=== PATIENT | female | born 2000 | race African-American/Black ===

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

== ENCOUNTER 2022-01-15 19:40 | Emergency (ER) | payer OTHER, SELFPAY ==
--- NOTE | ~2022-01-15 | XR_ITS ---
EXAMINATION: XR chest 1V portable DATE: 01/15/2022 20:16 INDICATION: Cough TECHNIQUE: frontal view of the chest was obtained. COMPARISON: None FINDINGS: The lungs are clear with no focal airspace opacities, pulmonary edema, pleural effusion or pneumothor ax. The cardiomediastinal silhouette is normal. Visualized bones and soft tissues are unremarkable. IMPRESSION: 1. No acute cardiopulmonary disease. Reviewed, dictated and finalized at location A.
[2022-01-15 19:43] VITALS: BP 134/74; PULSE 92; RESP 18; TEMP 37.7; O2SAT 100
--- NOTE | 2022-01-15 20:06 | ECG_ITS ---
Measurements Intervals [place] Rate: 69 P: 10 ND: 170 QRS: 58 QRSD: 73 T: 30 QT: 369 QTc: 398 Interpretive Statements SINUS RHYTHM NORMAL ECG NO PREVIOUS ECG AVAILABLE FOR COMPARISON Electronically Signed On 01-16-2022 14:13:46 CDT by Thomas Rivas M.D.
--- NOTE | 2022-01-15 20:10 | ED.GENADULT ---
HPI - General Adult General Chief complaint: Unspecified Stated complaint: im feeling really dizzy Time Seen by Provider: 01/15/22 20:00 History of Present Illness HPI narrative: Patient is a 21-year-old female that presents the emergency department with chief complaint of dizziness. Patient reports that over the last several days she has had a bit of a cough some discomfort in her left upper quadrant and left lower quadrant reports she has had multiple bouts of loose stool and reports that she has had cramping in her back. Patient reports that she is currently on her period but is on oral contraceptives. Patient states that she has had a cough this been nonproductive reports that whenever she stands up she gets lightheaded the patient does report she has been able to tolerate p.o. intake the patient reports that she has not had COVID and has not previously been vaccinated for COVID-19. Related Data Allergies Allergy/AdvReac Type Severity Reaction Status Date / Time diphenhydramine Allergy Hives Verified 01/15/22 20:06 [From Benadryl] Review of Systems Review of Systems: A 10 system review of systems was completed on the patient and is negative except for what is stated in the HPI. Nursing and ancillary documentation was reviewed. PMFSH Past Medical History Medical History Foot drop Family History Family History Father Diabetes mellitus Mother Hypertension Social History Social History Smoking status: Never smoker Alcohol intake: never Substance use: never Gender identity (if verbalized by the patient): Female Spiritual care concerns: No Exam Narrative: GENERAL: Well-appearing, well-nourished, and in no acute distress. HEAD: Normocephalic, atraumatic. EYES: PERRLA and EOMI. ENT: Nares clear, no rhinorrhea or epistaxis. Mucous membranes moist. NECK: Supple. CHEST: Clear to auscultation. No respiratory distress. HEART: Regular rate and rhythm. No murmur heard. Normal peripheral pulses. ABDOMEN: Soft, mild tenderness to palpation in the left upper and left lower quadrant, nondistended, normal active bowel sounds. EXTREMITIES: Normal range of motion. No edema. SKIN: Warm, dry, no rash. NEURO: No focal deficits. Alert and oriented x3. PSYCH: Normal mood and affect. Course Vital Signs Vital signs: Vital Signs Temperature 37.7 C H 01/15/22 19:43 Pulse Rate 92 01/15/22 19:43 Respiratory Rate 18 01/15/22 19:43 Blood Pressure 134/74 01/15/22 19:43 Pulse Oximetry 100 01/15/22 19:43 Temperature 37.7 C H 01/15/22 19:43 Pulse Rate 78 01/15/22 21:05 Respiratory Rate 18 01/15/22 21:05 Blood Pressure 128/80 01/15/22 21:05 Pulse Oximetry 99 01/15/22 21:05 Medical Decision Making Vital Signs Vital Signs: Vital Signs Temperature 37.7 C H 01/15/22 19:43 Pulse Rate 92 01/15/22 19:43 Respiratory Rate 18 01/15/22 19:43 Blood Pressure 134/74 01/15/22 19:43 Pulse Oximetry 100 01/15/22 19:43 Temperature 37.7 C H 01/15/22 19:43 Pulse Rate 78 01/15/22 21:05 Respiratory Rate 18 01/15/22 21:05 Blood Pressure 128/80 01/15/22 21:05 Pulse Oximetry 99 01/15/22 21:05 Lab Data Result diagrams: 01/15/22 20:18 01/15/22 20:18 Labs: Lab Results 01/15/22 01/15/22 01/15/22 Range/Units 20:18 20:18 20:18 WBC 4.6 (4.5-10.0) K/mm3 RBC 4.74 (4.2-5.4) M/mm3 Hgb 12.4 (12.0-15.0) g/dL Hct 38.9 (37.0-47.0) % MCV 82.1 (80-100) fl MCH 26.2 (26-34) pg MCHC 31.9 L (32-36) g/dl RDW 14.1 (11.5-14.5) % Plt Count 207 (150-375) k/mm3 MPV 11.3 H (7.4-10.4) fl Immature Gran % (Auto) 0.2 (0-0.5) % Neut % (Auto) 60.7 (45.5-73.1) % Lymph % (Auto) 26.2 (18.3-44.2) % Craig % (Auto)
[2022-01-15] MEDS: METOCLOPRAMIDE HCL INJ 10 MG/2 ML VIAL IV PUSH (20:22)
[2022-01-15] MEDS: SODIUM CHLORIDE 0.9% IV 1,000 ML 999 ML IV CONT ×2 (20:22→22:02)
[2022-01-15 20:23] LABS: Basophils Percent Auto 0.4 % (0.2-1.2); Eosinophils Absolute Auto 0.1 K/mm3 (0-0.3); Hematocrit 38.9 % (37.0-47.0); Hemoglobin 12.4 g/dL (12.0-15.0); Immature Granulocyte Absolute 0.01 K/mm3 (0.00-0.031); Immature Granulocyte Percent A 0.2 % (0-0.5); Lymphocytes Percent Auto 26.2 % (18.3-44.2); Mean Corpuscular HGB Conc 31.9 g/dl (32-36); Mean Corpuscular Hemoglobin 26.2 pg (26-34); Mean Corpuscular Volume 82.1 fl (80-100); Mean Platelet Volume 11.3 fl (7.4-10.4); Monocytes Absolute Auto 0.5 K/mm3 (0.1-0.6); Monocytes Percent Auto 10.5 % (2.6-8.5); Neutrophils Absolute Auto 2.8 K/mm3 (1.3-6.7); Neutrophils Percent Auto 60.7 % (45.5-73.1); Platelet Count Result 207 k/mm3 (150-375); Red Blood Count 4.74 M/mm3 (4.2-5.4); Red Cell Distribution Width 14.1 % (11.5-14.5); White Blood Count 4.6 K/mm3 (4.5-10.0)
[2022-01-15 20:37] LABS: D Dimer 0.44 ug/mL (<0.48)
[2022-01-15 20:42] LABS: Alanine Aminotransferase 11 U/L (4-35); Albumin Level 4.1 g/dL (3.7-5.6); Alkaline Phosphatase 56 U/L (45-116); Anion Gap 8 mmol/L (8-16); Aspartate Amino Transferase 20 U/L (14-36); Bilirubin,Total 0.3 mg/dL (0.2-1.3); Blood Urea Nitrogen 11 mg/dL (8-21); Calcium 8.4 mg/dL (8.9-10.7); Carbon Dioxide 25 mmol/L (22-30); Chloride 107 mmol/L (98-107); Estimated CRCL calculation 76 ml/min; Estimated Glomerular Filt Rate > 60; Glucose 64 mg/dL (65-110); Lipase 69 U/L (23-300); Magnesium 1.7 mg/dL (1.6-2.3); Potassium 3.9 mmol/L (3.4-5.0); Sodium 140 mmol/L (134-143)
[2022-01-15 20:48] VITALS: BP 110/64; PULSE 74
[2022-01-15 20:49] VITALS: BP 115/65; PULSE 82
[2022-01-15 20:52] VITALS: BP 111/68; PULSE 81
[2022-01-15 20:52] LABS: Troponin I < 0.012 ng/mL (0.000-0.034)
[2022-01-15 21:03] LABS: SARS-CoV-2 RNA PCR Negative
[2022-01-15 21:05] VITALS: BP 128/80; PULSE 78; RESP 18; O2SAT 99
--- NOTE | 2022-01-15 21:32 | PC.NURSE ---
pt updated on need for urine and progress in ER.
[2022-01-15 22:21] LABS: Add Urine Microscopic? YES; Appearance Urine Cloudy (Clear); Bilirubin Urine Negative (Negative); Blood Urine 3+ (Negative); Color Urine Yellow (Yellow); Glucose Urine UA Negative (Negative); Ketones Urine Negative (Negative); Leukocyte Esterase Ur Negative LEU/UL (Negative); Mucus Urine Rare /lpf; Nitrate Urine Negative (Negative); Protein Urine Negative (Negative); Specific Grav Ur 1.023 (1.001-1.035); Squamous Epithelial Cell Urine Few /hpf (Few); WBC Urine 0-3 /hpf
--- NOTE | 2022-01-15 22:55 | PC.NURSE ---
report given to rebecca rn, care transferred
[2022-01-15 23:31] VITALS: BP 117/73; PULSE 68; RESP 16; O2SAT 99
== END 2022-01-15 23:32 | disposition home or self-care (01) ==
PROVIDERS: Emergency Provider Emergency Medicine; PCP Physician Assistant
DX: K52.9 Noninfective gastroenteritis and colitis, unspecified (principal); Z20.822 Contact with and (suspected) exposure to COVID-19
CPT/HCPCS: 36415; 71045; 80053; 81001; 81025; 83690; 83735; 84484; 85025; 85380; 93005; 96361; 96374; 99284; C9803; J2765; J7030; U0003; U0005

== ENCOUNTER 2023-03-06 20:45 | Emergency (ER) | payer OTHER, SELFPAY ==
--- NOTE | ~2023-03-06 | XR_ITS ---
EXAM: XR ankle LT min 3V DATE: 03/06/2023 21:04 HISTORY: fall, injury, SWELLING TO LATERAL ANKLE . COMPARISON: None available. FINDINGS: Normal mineralization. No fracture or dislocation. No lytic or blastic lesion. Joint space s are maintained. No erosion or periosteal change. Soft tissues within normal limits. IMPRESSION: No acute osseous finding in the left ankle. Reviewed, dictated and finalized at location K.
[2023-03-06 21:06] VITALS: BP 116/94; PULSE 72; RESP 16; TEMP 36.7; O2SAT 100
--- NOTE | 2023-03-06 22:44 | ED.GENADULT ---
HPI - General Adult General Chief complaint: Extremity Injury, Lower <ADAM Marques Last Filed: 03/07/23 03:21> Stated complaint: left ankle injury <ADAM Marques Last Filed: 03/07/23 03:21> Time Seen by Provider: 03/06/23 22:02 <German Mauro PA-C - Last Filed: 03/07/23 03:21> Source: patient <ADAM Marques Last Filed: 03/07/23 03:21> Mode of arrival: ambulatory <ADAM Marques Last Filed: 03/07/23 03:21> Limitations: no limitations <ADAM Marques Last Filed: 03/07/23 03:21> History of Present Illness HPI narrative: This is a 22-year-old female who presents to the ED with chief complaint of a left ankle injury that occurred today just prior to arrival. Patient was mowing the lawn and going down the hill with a lawnmower when she her ankle rolled. She had an immediate pain and felt a pop. She has had trouble with weightbearing. Reports swelling and tenderness to the lateral ankle. She states that she has a dropfoot and feels that this caused her to roll her ankle. Denies any new numbness or weakness. <German Mauro PA-C - Last Filed: 03/07/23 03:21> Related Data Allergies/adverse reactions: Allergies Allergy/AdvReac Type Severity Reaction Status Date / Time diphenhydramine Allergy Hives Verified 01/15/22 20:06 [From Benadryl] <ADAM Marques Last Filed: 03/07/23 03:21> Review of Systems Review of Systems: CONSTITUTIONAL: Denies fever, chills, or sweats. SKIN: Denies rash or itching. MUSCULOSKELETAL: See HPI NEUROLOGIC: Denies headache, numbness, dizziness, or weakness. PSYCHIATRIC: Denies anxiety or depression. <ADAM Marques Last Filed: 03/07/23 03:21> [facility] Past Medical History Medical History: Medical History Foot drop <German Mauro PA-C - Last Filed: 03/07/23 03:21> Family History Family History: Family History Father Diabetes mellitus Mother Hypertension <German Mauro PA-C - Last Filed: 03/07/23 03:21> Social History Social History: Social History Smoking status: Never smoker Alcohol intake: never Substance use: never Living arrangements: with family Gender identity (if verbalized by the patient): Female Spiritual care concerns: No <German Mauro PA-C - Last Filed: 03/07/23 03:21> Exam Narrative: GENERAL: Well-appearing, well-nourished, and in no acute distress. HEAD: Normocephalic, atraumatic. EYES: PERRLA and EOMI. ENT: Nares clear, no rhinorrhea or epistaxis. Mucous membranes moist. Oropharynx without tonsillar hypertrophy exudate or other lesions. NECK: Supple. No adenopathy or masses. CHEST: No respiratory distress. Clear to auscultation. No wheezes rales or rhonchi HEART: Regular rate and rhythm. No murmur heard. Normal peripheral pulses. ABDOMEN: Soft, nontender, nondistended, normal active bowel sounds. EXTREMITIES: Left ankle: Moderate effusion and tenderness to the lateral ankle. No bruising. Neurovascular intact distally. Belle test negative. Right ankle: Benign MSK exam is otherwise benign. Ambulatory. Normal range of motion. No edema. SKIN: Warm, dry, no rash. NEURO: Alert and oriented x3. No focal deficits. PSYCH: Normal mood and affect. <German Mauro PA-C - Last Filed: 03/07/23 03:21> Course [employer]/PA Physician Supervision This is a was performed by both a physician and an APC. I performed all aspects of the MDM as documented w/ the following additions: 22-year-old presenting ankle pain. X-rays were negative. Patient was discharged with pain management appropriate follow-up. All questions answered. Patient in agreement w/ disposition. <Haseeb Mancera MD - Last Filed: 03/10/23 08:00> Vital Signs Vital signs:
== END 2023-03-06 22:58 | disposition home or self-care (01) ==
PROVIDERS: Emergency Provider Physician Assistant; PCP Physician Assistant
DX: S93.402A Sprain of unspecified ligament of left ankle, initial encounter (principal); M21.372 Foot drop, left foot; X50.9XXA Other and unspecified overexertion or strenuous movements or postures, initial encounter; Y93.H2 Activity, gardening and landscaping
CPT/HCPCS: 73610; 99283

== ENCOUNTER 2023-08-21 11:21 | Inpatient (IN) | payer OTHER, SELFPAY ==
[2023-08-21] VITALS (145 sets, daily range): BP systolic 76–164; BP diastolic 48–122; PULSE 69–268; RESP 16–18; TEMP 35.9–36.8; O2SAT 84–100; BMI 34.0
[2023-08-21] MEDS: LACTATED RINGERS 1,000 ML 125 ML IV CONT ×2 (12:30→13:37)
[2023-08-21 13:29] LABS: Basophils Percent Auto 0.2 % (0.2-1.2); Eosinophils Percent Auto 0.2 % (0-4.4); Hematocrit 34.3 % (37.0-47.0); Hemoglobin 10.8 g/dL (12.0-15.0); Immature Granulocyte Absolute 0.05 K/mm3 (0.00-0.031); Immature Granulocyte Percent A 0.4 % (0-0.5); Lymphocytes Absolute Auto 1.38 K/mm3 (0.9-3.2); Lymphocytes Percent Auto 10.7 % (18.3-44.2); Mean Corpuscular HGB Conc 31.5 g/dl (32-36); Mean Corpuscular Hemoglobin 24.5 pg (26-34); Mean Corpuscular Volume 77.8 fl (80-100); Mean Platelet Volume 12.9 fl (7.4-10.4); Monocytes Absolute Auto 0.8 K/mm3 (0.1-0.6); Monocytes Percent Auto 6.5 % (2.6-8.5); Neutrophils Absolute Auto 10.5 K/mm3 (1.3-6.7); Platelet Count Result 217 k/mm3 (150-375); Red Blood Count 4.41 M/mm3 (4.2-5.4); Red Cell Distribution Width 15.1 % (11.5-14.5); White Blood Count 12.9 K/mm3 (4.5-10.0)
[2023-08-21] MEDS: AMPICILLIN 2 GM/NS 100 ML 2 GM/100 ML BAG IVPB (13:38)
--- NOTE | 2023-08-21 14:49 | LDADM ---
This patient, Ermias Ruiz, was admitted to Labor/Delivery/Recovery 105 on 08/21/23 at 11:21. Plans for labor, pain management and were discussed with patient. Patient/family oriented to hospital policies and general routines including ID bracelet, bed and alarms, visiting hours, pain management, procedures, bathroom and other care routines, personal items, smoking policy, room service/diet and guest tray routines, security routines, and visiting hours. Patient/Family are encouraged to report perceived risks to care and to ask questions if they do not understand what they are told or what they should do. See OBIX for further documentation.
--- NOTE | 2023-08-21 16:33 | WPDOBADMIT ---
Obstetrics - Admit Note Admission Note: record reviewed. No pertinent additions to the history and/or any subsequent changes in the physical findings that are not consistent with the expected course of the were found. admit pt in labor., SVe /-2 AROM thick meconium fluid, anticipate vaginal delivery Additions to the history and/or subsequent changes in the physical findings follow. None.
--- NOTE | 2023-08-21 17:54 | PM.IMHP ---
H&P: HPI History of Present Illness Date/Time: 08/21/23 17:54 Chief Complaint: pt arrived in labor with contractions every 3-4 minutes. Minimal variability, no declerations, accelerations few, category 2 tracing. AROM, noted thick meconium and IUPC placed. recurrent late decelerations after no cervical dilation change. discussed risk of having to add pitocin to make cervical change for vaginal delivery. decision was made with pt and her family for a primary section. questions answered and Dr. traore notified. complicated by sickle cell trait and anemia Review of Systems Review of Systems: All systems reviewed & are unremarkable except as noted in HPI and below PMFSH Past Medical History Medical History Foot drop Family History Family History Father Diabetes mellitus Mother Hypertension Social History Social History Smoking status: Never smoker Alcohol intake: never Substance use: never Lack of Transportation: No Lack of Food: Never True Current Housing: I Have Housing Concerned About Future Housing: No Difficulty Paying Gas/Electric Bills: No Difficulty Paying for Meds: No Currently Unemployed: No Education: Don't Know Difficulty w/ Childcare or Family Care: No Living arrangements: with family Gender identity (if verbalized by the patient): Female Spiritual care concerns: No Meds Home Medications and Allergies Allergies Allergy/AdvReac Type Severity Reaction Status Date / Time diphenhydramine Allergy Hives Verified 08/04/23 12:29 [From Benadryl] Vital Signs Vital Signs - 24 hr 08/21/23 13:16 08/21/23 13:31 08/21/23 13:41 Temperature 36.6 C Pulse Rate 82 85 Blood Pressure 122/64 129/81 Pulse Oximetry 100 Oxygen Delivery 08/21/23 13:46 08/21/23 13:51 08/21/23 13:56 Temperature Pulse Rate 75 Blood Pressure 116/62 Pulse Oximetry 100 100 99 Oxygen Delivery 08/21/23 13:59 08/21/23 14:01 08/21/23 14:06 Temperature Pulse Rate 78 76 Blood Pressure 113/76 104/48 L Pulse Oximetry 100 99 Oxygen Delivery 08/21/23 14:11 08/21/23 14:12 08/21/23 14:14 Temperature Pulse Rate 93 88 Blood Pressure 113/74 114/72 Pulse Oximetry 99 Oxygen Delivery 08/21/23 14:15 08/21/23 14:16 08/21/23 14:17 Temperature Pulse Rate 83 87 Blood Pressure 115/76 136/82 Pulse Oximetry 100 Oxygen Delivery 08/21/23 14:19 08/21/23 14:21 08/21/23 14:23 Temperature Pulse Rate 85 85 89 Blood Pressure 125/59 L 123/60 118/55 L Pulse Oximetry 99 Oxygen Delivery 08/21/23 14:25 08/21/23 14:27 08/21/23 14:29 Temperature Pulse Rate 92 79 93 Blood Pressure 115/55 L 122/61 117/59 L Pulse Oximetry 96 Oxygen Delivery 08/21/23 14:31 08/21/23 14:32 08/21/23 14:33 Temperature Pulse Rate 83 94 Blood Pressure 125/69 131/55 L Pulse Oximetry 99 Oxygen Delivery 08/21/23 14:35 08/21/23 14:37 08/21/23 14:39 Temperature Pulse Rate 77 89 85 Blood Pressure 127/68 132/67 128/59 L Pulse Oximetry 100 Oxygen Delivery 08/21/23 14:41 08/21/23 14:42 08/21/23 14:46 Temperature Pulse Rate 83 79 Blood Pressure 129/55 L 98/59 L Pulse Oximetry 100 Oxygen Delivery 08/21/23 14:47 08/21/23 14:52 08/21/23 14:57 Temperature Pulse Rate Blood Pressure Pulse Oximetry 97 97 99 Oxygen Delivery 08/21/23 15:01 08/21/23 15:02 08/21/23 15:07 Temperature Pulse Rate 74 Blood Pressure 106/66 Pulse Oximetry 96 96 Oxygen Delivery 08/21/23 15:12 08/21/23 15:16 08/21/23 15:17 Temperature Pulse Rate 75 Blood Pressure 105/65 Pulse Oximetry 96 96 Oxygen Delivery 08/21/23 15:22 08/21/23 15:27 08/21/23 15:32 Temperature Pulse Rate 79 Blood
[2023-08-21] MEDS: TERBUTALINE SULFATE 1 MG/ML VIAL 0.25 MG SUB-Q (17:57)
[2023-08-21] MEDS: AZITHROMYCIN 500 MG/NS 250 ML 500 MG/250 ML BAG 250 MG IVPB (18:12)
[2023-08-21] MEDS: PHENYLEPHRINE 1,000 MCG/10 ML SYRINGE 100 MCG IV PUSH (18:39)
[2023-08-21] MEDS: ceFAZolin 2 GM/D5W 50 ML 2 GM/50 ML BAG IVPB (19:10)
--- NOTE | 2023-08-21 19:21 | P.PNAN_ITS ---
Anes - Eval Final PreProcedure Day of Procedure 08/21/23 19:21 Patient weight: obese Anesthetic plan: proceed Anesthesia type and monitoring: regional epidural and standard monitoring Results Review: All pre-operative results and documents have been reviewed as part of the pre- operative evaluation. Informed Consent: The patient's anesthetic plan and its attendant risks and benefits were discussed with the patient/family/POA. Questions were solicited and answers provided to the satisfaction of the patient/family/POA.
--- NOTE | 2023-08-21 19:51 | P.OP_ITS ---
Procedure Note - Detailed Date of Procedure 08/21/23 Pre-op Diagnosis Assuring heart tones Post-op Diagnosis Same Procedure Performed Low-transverse section Surgeon Marichuy Jones MD Anesthesia Spinal Indications nonreassuring heart tones, remote from vaginal Findings Normal gestational maternal anatomy, average size , normal Apgars. thick meconium Description of Procedure The patient was taken the operating room. She was prepped and draped in dorsal supine position with a leftward tilt. This was done after spinal anesthetic was applied. A low-transverse skin incision was made and carried down till of the fascia with the knife. The fascial incision was made with the knife. The fascial incision was extended laterally with Garrison scissors. The fascia was tented upward superiorly and inferiorly the rectus muscles were dissected off bluntly. The rectus muscles were the midline. The preperitoneal fat and peritoneum were dissected open bluntly at the superior aspect of the rectus muscles. The peritoneal incision was extended superior and inferior with good position of bladder. The uterine incision was made with a scalpel down to the level of the amniotic cavity. The amniotic cavity was entered bluntly. The infant was delivered. The cord was clamped and cut and the infant was handed off to waiting pediatric staff. Cord bloods were obtai leanna. The placenta was removed manually. The uterus was exteriorized. The uterus was cleared of all clots, debris and membranes. The uterus was closed in 0 Vicryl running lock fashion. An imbricating over a was placed along the incision line as well. The uterus was returned to the abdomen. The gutters were cleared of all clots and debris. The fascia was closed with 0 Vicryl running fashion. The subcutaneous tissue was irrigated pinpoint bleeders were cauterized. The skin was closed with subcuticular absorbable magnus. The skin incision line was covered with glue. The patient tolerated the procedure well. She has taken recovery room in stable condition. Sponge lap and needle counts were correct x2. Pathology Yes Complications No immediate complications Condition Stable Disposition PACU
[2023-08-21] MEDS: OXYTOCIN 30 UNITS/NS 500 ML 30 UNITS/500 ML BAG 125 UNITS IV CONT (20:30)
--- NOTE | 2023-08-21 22:58 | OBPPTRN ---
Patient transferred to post room #285 via stretcher. Support person present. Oriented to unit, room, information board, rooming in, admission packet and security measures. Patient verbalizes understanding.
[2023-08-22] MEDS: DEXTROSE 5%/0.45% SOD CHL 1,000 ML 125 ML IV CONT (00:18)
[2023-08-22 04:00] VITALS: BP 127/72; PULSE 89; RESP 18; TEMP 37; O2SAT 97
[2023-08-22] MEDS: KETOROLAC 30 MG/ML VIAL (*BKC) IV PUSH (04:06)
[2023-08-22 05:05] LABS: Basophils Percent Auto 0.1 % (0.2-1.2); Eosinophils Percent Auto 0.1 % (0-4.4); Hematocrit 29.9 % (37.0-47.0); Hemoglobin 9.5 g/dL (12.0-15.0); Immature Granulocyte Absolute 0.04 K/mm3 (0.00-0.031); Immature Granulocyte Percent A 0.3 % (0-0.5); Lymphocytes Percent Auto 9.8 % (18.3-44.2); Mean Corpuscular HGB Conc 31.8 g/dl (32-36); Mean Corpuscular Hemoglobin 24.5 pg (26-34); Mean Corpuscular Volume 77.3 fl (80-100); Mean Platelet Volume 12.7 fl (7.4-10.4); Monocytes Absolute Auto 0.9 K/mm3 (0.1-0.6); Monocytes Percent Auto 6.2 % (2.6-8.5); Neutrophils Percent Auto 83.5 % (45.5-73.1); Platelet Count Result 182 k/mm3 (150-375); Red Blood Count 3.87 M/mm3 (4.2-5.4); Red Cell Distribution Width 15.2 % (11.5-14.5); White Blood Count 14.3 K/mm3 (4.5-10.0)
[2023-08-22] MEDS: POLYSACCHARIDE IRON COMPLEX 150 MG CAPSULE PO ×2 (07:51→15:40)
[2023-08-22] MEDS: DOCUSATE SODIUM 100 MG CAPSULE PO ×2 (07:51→15:40)
[2023-08-22] MEDS: HYDROcodone/acetaminophen (*CRX) 5-325 MG TABLET 1 TAB PO ×3 (07:51→19:26)
[2023-08-22 07:55] VITALS: BP 114/71; PULSE 83; RESP 16; TEMP 36.9; O2SAT 99
--- NOTE | 2023-08-22 07:57 | P.PNOB_ITS ---
OB - PN: Subj Subjective Date/time seen: 08/22/23 07:57 Interval history: pp day 1 primary section incisional pain baby doing well flatus not present OB - PN: Obj Data Labs 08/22/23 04:05 Labs: Laboratory Results - last 24 hr 08/21/23 08/22/23 13:24 04:05 WBC 12.9 H 14.3 H RBC 4.41 3.87 L Hgb 10.8 L 9.5 L Hct 34.3 L 29.9 L MCV 77.8 L 77.3 L MCH 24.5 L 24.5 L MCHC 31.5 L 31.8 L RDW 15.1 H 15.2 H Plt Count 217 182 MPV 12.9 H 12.7 H Immature Gran % (Auto) 0.4 0.3 Neut % (Auto) 82.0 H 83.5 H Lymph % (Auto) 10.7 L 9.8 L [place] % (Auto) 6.5 6.2 Eos % (Auto) 0.2 0.1 Baso % (Auto) 0.2 0.1 L Lymph # (Auto) 1.38 1.40 [place] # (Auto) 0.8 H 0.9 H Eos # (Auto) 0.0 0.0 Baso # (Auto) 0.0 0.0 Abs Immat Gran (auto) 0.05 H 0.04 H Absolute Neuts (auto) 10.5 H 12.0 H Absolute Nucleated RBC 0.0 0.0 Nucleated RBC % 0.0 0.0 Blood Type A Positive Antibody Screen Negative OB - PN A/P Plan day: 1 Plan: routine care Time Spent With Patient Time: Total time spent is greater than 50% in coordination of care (as documented) at patient's floor/unit and/or counseling patient: Review of Systems Review of Systems: All systems reviewed & are unremarkable except as noted in HPI and below Exam Const: General: cooperative and healthy appearing Chest: Chest palpation & inspection: normal inspection of the chest Resp: Effort & Inspection: normal respiratory effort Cardio: Rate: regular rate Rhythm: regular rhythm GI: Other: incision CDI Neuro: General: patient oriented x3
--- NOTE | 2023-08-22 10:00 | WPDANLDNPN2 ---
Anes-Prog Note L&D-Neuraxial Date/Time: 08/22/23 10:00 Patient feedback: Patient satisfied with post-operative pain management.
--- NOTE | 2023-08-22 10:00 | WPDANLDPN2 ---
Anes-Prog Note L&D Date/Time: 08/22/23 10:00 Neuro status: Neuro function grossly intact. Cardiovascular status: normal Respiratory status: normal Airway patency: baseline Mental status: baseline Post-Op hydration status: normal Vital Signs: Last Vital Signs Temp 36.9 C 08/22/23 07:55 Pulse 83 08/22/23 07:55 Resp 16 08/22/23 07:55 BP 114/71 08/22/23 07:55 Pulse Ox 99 08/22/23 07:55 O2 Del Method Room Air 08/22/23 04:00 Pain score (VAS): 0 I/O: Intake & Output 08/21/23 08/22/23 08/22/23 23:59 07:59 15:59 Intake Total 720 Output Total 1000 1350 Balance -1000 -630 Post-procedural complaints: none Patient feedback: Patient satisfied with anesthetic care.
[2023-08-22 12:29] VITALS: BP 120/64; PULSE 88; RESP 16; TEMP 36.6; O2SAT 99
[2023-08-22] MEDS: IBUPROFEN 600 MG TABLET PO ×2 (12:54→19:26)
[2023-08-22 13:18] LABS: Rapid Plasma Reagin Non-Reactive (NonReactive)
[2023-08-22] MEDS: HYDROcodone/acetaminophen (*CRX) 10-325 MG TABLET 1 TAB PO (15:40)
[2023-08-22] MEDS: SIMETHICONE 80 MG TAB.CHEW PO (19:22)
[2023-08-22 19:30] VITALS: BP 124/77; PULSE 64; RESP 18; TEMP 36.6; O2SAT 100
[2023-08-23] MEDS: SIMETHICONE 80 MG TAB.CHEW PO ×3 (03:10→16:04)
[2023-08-23] MEDS: HYDROcodone/acetaminophen (*CRX) 5-325 MG TABLET 1 TAB PO ×2 (03:10→16:04)
[2023-08-23] MEDS: IBUPROFEN 600 MG TABLET PO ×3 (03:10→16:06)
--- NOTE | 2023-08-23 07:42 | PM.OBPNVD ---
OB - PN: Subj Subjective Date/time seen: 08/23/23 07:42 Interval history: pp day 2 primary section sleeping when visited, no complaints OB - PN: Obj Data Labs 08/22/23 04:05 Labs: Laboratory Results - last 24 hr 08/21/23 13:24 RPR Non-reactive OB - PN A/P Assessment and Plan (1) S/P : Code(s): Z98.891 - History of uterine scar from previous surgery Status: Acute Plan meeting postop milestones POD2, increase ambulation Time Spent With Patient Time: Total time spent is greater than 50% in coordination of care (as documented) at patient's floor/unit and/or counseling patient: Exam Const: General: comfortable and no acute distress Orientation/consciousness: patient oriented x3 Resp: Effort & Inspection: normal respiratory effort
--- NOTE | 2023-08-23 08:00 | PC.NURSE ---
PT introductions made and plan of care discussed per post op c section, pain management, bottle feeding, daily care activities. PT and fob both recipients of such instructions and no barriers to learning identified at this time. PT received such instructions per one to one discussion, mom baby care guide and demonstrations this shift. PT verbalized understanding of such care.
[2023-08-23 08:30] VITALS: BP 124/76; PULSE 71; RESP 18; TEMP 37.3; O2SAT 99
[2023-08-23] MEDS: HYDROcodone/acetaminophen (*CRX) 10-325 MG TABLET 1 TAB PO (10:23)
[2023-08-23] MEDS: DOCUSATE SODIUM 100 MG CAPSULE PO ×2 (10:23→16:04)
[2023-08-23] MEDS: POLYSACCHARIDE IRON COMPLEX 150 MG CAPSULE PO ×2 (10:23→16:04)
[2023-08-23 10:25] VITALS: PULSE 71; RESP 18; O2SAT 99
[2023-08-23 19:00] VITALS: BP 125/70; PULSE 70; RESP 16; TEMP 36.4; O2SAT 100
[2023-08-24] MEDS: IBUPROFEN 600 MG TABLET PO ×2 (00:13→11:53)
[2023-08-24] MEDS: HYDROcodone/acetaminophen (*CRX) 10-325 MG TABLET 1 TAB PO ×2 (00:16→11:53)
[2023-08-24] MEDS: SIMETHICONE 80 MG TAB.CHEW PO ×2 (00:27→11:52)
--- NOTE | 2023-08-24 06:27 | PM.OBPNVD ---
OB - PN: Subj Subjective Date/time seen: 08/24/23 06:27 Interval history: pp day 3 primary section no complaints plan d/c home OB - PN: Obj Data Labs 08/22/23 04:05 OB - PN A/P Plan day: 3 Plan: routine care and discharge home Time Spent With Patient Time: Total time spent is greater than 50% in coordination of care (as documented) at patient's floor/unit and/or counseling patient: Review of Systems Review of Systems: All systems reviewed & are unremarkable except as noted in HPI and below Exam Const: General: cooperative Resp: Effort & Inspection: normal respiratory effort Cardio: Rate: regular rate Rhythm: regular rhythm GI: Other: incision CDI Skin: General skin exam: normal color
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
[2023-08-24 07:35] VITALS: BP 110/66; PULSE 77; RESP 18; TEMP 36.4; O2SAT 98
--- NOTE | 2023-08-24 08:00 | PC.NURSE ---
PT introductions made and plan of care discussed per post op c section, pain management, bottle feeding, daily care activities and pending discharge to home. PT and fob both recipients of such instructions and no barriers to learning identified at this time. PT received such instructions per one to one discussion, mom baby care guide and demonstrations this shift. PT verbalized understanding of such care.
[2023-08-24 10:00] VITALS: PULSE 77; RESP 18; O2SAT 98
[2023-08-24] MEDS: POLYSACCHARIDE IRON COMPLEX 150 MG CAPSULE PO (11:53)
[2023-08-24] MEDS: DOCUSATE SODIUM 100 MG CAPSULE PO (11:53)
--- NOTE | 2023-08-24 16:00 | PC.NURSE ---
Patient was given the opportunity to view the discharge video Mother & Baby Care, The First Two Weeks and to ask questions. Patient declined viewing the video but down loaded it to her phone and has been given the mother/baby guide for home reference. PT received discharge instructions per protocol and verbalized understanding
--- NOTE | 2023-08-24 16:45 | PC.NURSE ---
PT discharged to home ambulatory accompanied by fob and infant and walked to waiting car. Follow up appts confirmed
== END 2023-08-24 16:45 | disposition home or self-care (01) | DRG 540 ==
LOC: ANHLDR 13:38 → ANHOB2 23:06
PROVIDERS: Advanced Practice Midwife; Admitting Provider Obstetrics & Gynecology; PCP Physician Assistant; Visit Provider Obstetrics & Gynecology
PROC: 10D00Z1 Extraction of Products of Conception, Low, Open Approach (ICD-10-PCS; CPT 59514; principal; 2023-08-21 18:45)
DX: O32.4XX0 Maternal care for high head at term, not applicable or unspecified (principal); O69.81X0 Labor and delivery complicated by cord around neck, without compression, not applicable or unspecified; O77.0 Labor and delivery complicated by meconium in amniotic fluid; O99.824 Streptococcus B carrier state complicating childbirth; O76 Abnormality in fetal heart rate and rhythm complicating labor and delivery; Z3A.39 39 weeks gestation of pregnancy; Z37.0 Single live birth
CPT/HCPCS: 36415; 85025; 86592; 86850; 86900; 86901; 88307; A9270; J0290; J0456; J0690; J1885; J2274; J2371; J2405; J2590; J2795; J3105; J7120

== ENCOUNTER 2025-03-18 00:34 | Day surgery (SDC) | payer OTHER, SELFPAY ==
--- NOTE | 2025-03-11 08:21 | PC.NURSE ---
Report to the Outpatient Waiting Room, entrance under the green pavilion located off [facility], at time _0600_ on date _[id number]_. Planned Procedure Time: _0730_. Time changes happen often and if your time is changed the preop area will call you the afternoon before. - You and your visitor will be asked to self-screen and do not enter if you have any COVID symptoms. Please call surgeon if you need to reschedule. - A mask is optional within the hospital at this time. Patients may have clear liquids (water, carbonated beverages, clear teas, apple juice) until 3 hours prior to surgery with a maximum of 20 ounces. - No food from midnight until time of surgery and no smoking, or chewing tobacco (or any form of nicotine). No chewing gum, candy or mints. Take only the following medications with a SIP of water on the morning of surgery: __None___ DO NOT STOP ANY OF YOUR OTHER PRESCRIPTION MEDICATIONS PRIOR TO SURGERY EXCEPT THE FOLLOWING Hold all vitamins and supplements for 3 days per anesthesiologist. Medications to discontinue per physician Date to take last dose Please no make-up, nail malawian, hairspray, perfume, deodorant, or body powder the day of surgery. No jewelry (including any body piercings) or valuables the day of surgery, leave them at home. Please take a shower or bath the night before, or the morning of, surgery with an antibacterial soap. Wear comfortable, loose fitting clothing. - Jewelry must be removed prior to entering the operating room. Rings and piercings that are not removed may be cut off. - The hospital will not accept responsibility for valuables. - Please leave all valuables, including medications, at home the day of surgery. If you are going home after surgery, a licensed meals on wheels driver must drive you home. - NO public transportation without another adult if you receive anesthesia. - We recommend that an adult stay with you for 24 hours following discharge. - We also recommend that you do not drive, make important decision, drink alcoholic beverages, or take any drugs that were not prescribed by your health care provider for at least 24 hours after your discharge time. Follow any additional instructions given to you from your surgeon. Telephone instructions given to __Derea__and asked if any additional questions and then verbalized understanding. Patient advised to call surgeon office or pre surgery nurse liaison [phone] if any additional questions.
[2025-03-18] VITALS (11 sets, daily range): BP systolic 111–127; BP diastolic 59–80; PULSE 61–74; RESP 14–20; TEMP 36.5–36.6; O2SAT 93–100
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
--- OUTSIDE RECORDS SUMMARY | 2025-03-18 00:36 | XMS_ITS | Data Portability ---
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 discharge, Denies unusual bruising and Denies jaundice Neurologic: Denies Neuro-related abnormal movements, Denies Abnormal speech present, Denies abnormal gait, Denies behavioral changes, Denies confusion, Denies vertigo, Denies dizziness, Denies syncope, Denies loss of vision, Denies memory loss, Denies convulsions and Denies weakness Psychiatric: Psychiatric: Denies abnormal sleep pattern, Denies behavioral changes, Denies change in libido, Denies confusion, Denies depression, Denies anhedonia and Denies memory loss Endocrine: Endocrine: Reports no additional endocrine complaints, Denies change in libido and Denies fatigue Hematologic/Lymphatic: Hematologic/Lymphatic: Reports no additional hematologic/lymphatic complaints Allergic/Immunologic: Allergic/Immunologic: Reports no additional allergic/immunologic complaints and Denies wheezing FOR[facility], [facility] Past Medical History Medical History (Updated 03/18/25 @ 06:38 by Barry Jimenez MD) Overweight Foot drop Family History Family History Father Diabetes mellitus Mother Hypertension Social History Social History Smoking status: Never smoker Alcohol intake: never Substance use: never Lack of Transportation: No Lack of Food: Never True Current Housing: I Have Housing Concerned About Future Housing: No Difficulty Paying Gas/Electric Bills: No Difficulty Paying for Meds: No Currently Unemployed: No Education: Don't Know Difficulty w/ Childcare or Family Care: No Living arrangements: with family Gender identity (if verbalized by the patient): Female Spiritual care concerns: No Meds Home Medications and Allergies Home Medications Medication Instructions Recorded Confirmed Type No Home Medications 03/11/25 03/11/25 History Allergies Allergy/AdvReac Type Severity Reaction Status Date / Time diphenhydramine (From Allergy Hives Verified 03/18/25 06:03 Benadryl) Vital Signs Vital Signs - 24 hr 03/18/25 06:03 Temperature 97.7 F Pulse Rate 71 Respiratory Rate 20 Blood Pressure 125/69 Pulse Oximetry 99 Oxygen Delivery Room Air Exam Const: General: cooperative, healthy appearing, comfortable and no acute distress Orientation/consciousness: oriented to person, oriented to place and oriented to time HENMT: Head: normal to inspection Ears: external ears normal Face/Nose/Sinus: Normal external nose present and normal facial exam Face and sinus: normal facial exam Eyes: General: appearance normal, both eyes and all related structures Neck: Neck: normal visual inspection, trachea midline and supple Resp: Auscultation: clear to auscultation bilaterally, no crackles, no rales, no rhonchi and no wheezes Cardio: Rate: regular rate Rhythm: regular rhythm Heart sounds: no click, no murmurs and no rubs GI: GI Palp: No abdominal tenderness, No Soft to palpation, No Tenderness to palpation present (GI) and No Palpable mass present Auscultation: normal bowel sounds Skin: General skin exam: normal color and no rashes or lesions noted Neuro: General: oriented to person, oriented to place and oriented to time Extrem: General: normal to inspection, no joint enlargement, no clubbing, cyanosis or edema, no pedal edema and no calf tenderness Psych: Appearance: grossly normal Mental Status: mental status grossly normal Speech and movement: Normal speech and movement present Assessment and Plan Assessment and plan (1) Keloid of skin: Code(s): L91.0 - Hypertrophic scar Status: Acute (2) Post-operative pain: Code(s): G89.18 - Other acute postprocedural pain Status: Acute Plan This patient is a 24-year-old female with a painful keloid scar at her low-transverse incision site on her abdomen. Her we have agreed to revise the scar. She understands the risks, benefits, and alternatives. She has completed informed consent process is ready to proceed."
--- OUTSIDE RECORDS SUMMARY | 2025-03-18 00:37 | XMS_ITS | Data Portability ---
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 CAPSULE BY MOUTH EVERY 6 HOURS FOR 7 DAYS 10/12 completed Not Available Not Available Not Available ibuprofen 400 mg tablet 03/01 completed Not Available Not Available Not Available mupirocin 2 % topical ointment 02/02 completed Not Available Not Available Not Available gabapentin 100 mg capsule [id number]|2025-03-18 00:37:00|2025-03-18 00:37:00|XMS_ITS|ORVILLE ROYAL|External Medical Summaries|[id number]|" Clinical Summary Created on: March 18, 2025 Ermias Ruiz : 2000 Sex: Female Author Organization [facility] Address [address] [place] [address] Phone 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 17 g = 1 scoop. Dissolve in 4 -8 oz of water or other liquid. 578 g 08/05/2021 Active Social History Tobacco Use Types Packs/Day Years Used Date Smoking Tobacco: Never Smokeless Tobacco: Never Alcohol Use Standard Drinks/Week Comments Yes 0 (1 standard drink = 0.6 oz pur e alcohol) occasional Comments No Sex and Gender Information Value Date Recorded Sex Assigned at Not on file Legal Sex Female 10:23 PM CDT Gender Identity Not on file Sexual Orientation Not on file Last Filed Vital Signs Vital Sign Reading Time Taken Comments Blood Pressure 110/67 08/05/2021 3:05 AM CDT Pulse 69 08/05/2021 3:05 AM CDT Temperature 36.8 C (98.2 F) 08/04/2021 11:04 PM CDT Respiratory Rate 16 08/05/2021 3:05 AM CDT Oxygen Saturation 100% 08/05/2021 3:05 AM CDT Inhaled Oxygen Concentration - - Weight 65.8 kg (145 lb) 08/04/2021 11:04 PM CDT Height 165.1 cm (5' 5 ) 08/04/2021 11:04 PM CDT Body Mass Index 24.13 08/04/2021 11:04 PM CDT Plan of Treatment Health Maintenance Due Date Last Done Comments Hepatitis C Virus (HCV) Screening 2000 Meningococcal B Immunization (1 of 2 - Standard) 2018 Influenza Immunization (#1) 07/06/202407/2019, 08/31/2016, 08/16/2015, Additional history exists SARS-COV-2 Immunization ( - 2023- season) 2024 Respiratory Syncytial Virus (RSV) Immunization (Adult) (1 - 1-dose 75+ series) 2077 Polio (IPV) Immunization Discontinued 01/27/2003 Hepatitis B Immunization Completed 003, 01/27/2003, 2002 Pneumococcal Immunization Combined Aged Out 12/19/2003, 06/22/2003, 04/06/2003, Additional history exists No longer eligible based on patient's age to complete this topic Hepatitis A Immunization Discontinued 03/06/2006, 01/03 Measles Mumps Rubella (MMR) Immunization Discontinued 03/19/2007, 12/11/2003 Varicella Immunization Discontinued 03/19/2007, 2003 DTaP/Tdap/Td Immunization Discontinued 2013, 03/19/2007, 03/03/2004, Additional history exists TdaP Immunization Completed 06/30/2014 Human Papillomavirus (HPV) Immunization Completed 06/29/2015, 12/31/2014, 06/30/2014 Meningococcal Immunization (ACWY) Completed 06/09/2020, 06/29/2015 Rotavirus Immunization Aged Out No lo nger eligible based on patient's age to complete this topic Insurance MEDICAID [employer] MEDICAID [employer] Care Teams Embedded Software Programmer Relationship Specialty Start Date End Date Provider, None [place] PCP - General 08/05/21 "
[2025-03-18] MEDS: LACTATED RINGERS 1,000 ML 30 ML IV CONT ×2 (06:20→08:50)
--- NOTE | 2025-03-18 06:37 | P.PNAN_ITS ---
Anes - Initial Pre Proc Eval Procedure: Operation Date: 03/18/25 07:30 Proposed Procedures p Repair of Complex Trunk, Revision of Scar - Andrew Jones MD Date/Time: 03/18/25 06:37 Surgeon: Andrew Jones MD Pre Op Diagnosis: Abd Pain Patient Data Age: 24 Gender: F Height: 1.63 m Weight: 79 kg Last Vital Signs Temp 36.5 C 03/18/25 06:03 Pulse 71 03/18/25 06:03 Resp 20 03/18/25 06:03 BP 125/69 03/18/25 06:03 Pulse Ox 99 03/18/25 06:03 O2 Del Method Room Air 03/18/25 06:03 Allergies Allergy/AdvReac Type Severity Reaction Status Date / Time diphenhydramine (From Allergy Hives Verified 03/18/25 06:03 Benadryl) Home Medications Medication Instructions Recorded Confirmed Type No Home Medications 03/11/25 03/11/25 History Patient hx anesthesia problems: none Family hx anesthesia problems: none Results Review: All pre-operative results and documents have been reviewed as part of the pre- operative evaluation. [facility] Past Medical History Medical History (Updated 03/18/25 @ 06:38 by Barry Jimenez MD) Overweight Foot drop Family History Family History Father Diabetes mellitus Mother Hypertension Social History Social History Smoking status: Never smoker Alcohol intake: never Substance use: never Lack of Transportation: No Lack of Food: Never True Current Housing: I Have Housing Concerned About Future Housing: No Difficulty Paying Gas/Electric Bills: No Difficulty Paying for Meds: No Currently Unemployed: No Education: Don't Know Difficulty w/ Childcare or Family Care: No Living arrangements: with family Gender identity (if verbalized by the patient): Female Spiritual care concerns: No Anes - Eval Final PreProcedure Day of Procedure 03/18/25 06:37 Patient weight: overweight Heart: regular rate and rhythm Lungs: clear to auscultation Airway: Mallampati scale class II Neurological: alert and oriented Last oral intake: >/= 8 hours ASA classification: II Emergent: no Anesthetic plan: proceed Anesthesia type and monitoring: general LMA and standard monitoring Results Review: All pre-operative results and documents have been reviewed as part of the pre- operative evaluation. Informed Consent: The patient's anesthetic plan and its attendant risks and benefits were discussed with the patient/family/POA. Questions were solicited and answers provided to the satisfaction of the patient/family/POA.
[2025-03-18] MEDS: SCOPOLAMINE 1 MG PATCH 1 PATCH TRANSDERM (07:05)
[2025-03-18 07:09] LABS: BEDSIDEPREGUCG Negative (Negative)
--- NOTE | 2025-03-18 07:16 | WPDHPUPDATE1 ---
History and Physical Update Update Date/Time: 03/18/25 07:16 History and Physical has been reviewed, including an updated exam of the patient. There are NO changes in the patient's condition. Risks, benefits, and alternatives have been discussed and questions answered. Patient agrees to proceed with procedure.
--- NOTE | 2025-03-18 07:17 | P.HP_ITS ---
H&P: HPI History of Present Illness Date/Time: 03/18/25 07:17 Chief Complaint: Surgical incision pain Narrative: This patient is a 24-year-old female with a painful keloid scar at her low- transverse incision site on her abdomen. Her we have agreed to revise the scar. She understands the risks, benefits, and alternatives. She has completed informed consent process is ready to proceed. The patient understands the details of the procedure. The procedure has been explained in detail. She understands the risks. She understands that injuries may occur that result in hospitalization, more surgery, and severe illness. She understands risk of hemorrhage and infection. She denies any chest pain or shortness of breath. She denies any nausea, vomiting, fever, chills. Review of Systems Review of Systems: All systems reviewed & are unremarkable except as noted in HPI and below Constitutional: Constitutional: Denies chills, Denies fatigue, Denies fever(s) and Denies weakness Eyes: Eyes: Denies blurry vision, Denies change in vision, Denies loss of peripheral vision, Denies loss of vision, Denies other visual disturbances and Denies eye pain ENT: Denies vertigo, Denies dizziness, Denies hearing loss, Denies mouth pain, Denies nasal obstruction, Denies neck mass and Denies neck pain Cardiovascular: Cardiovascular: Denies chest pain, Denies diaphoresis, Denies syncope, Denies leg edema and Denies dyspnea Respiratory: Respiratory: Denies chest congestion, Denies cough, Denies hemoptysis, Denies dyspnea and Denies wheezing Gastrointestinal: Gastrointestinal: Denies abdominal pain, Denies constipation, Denies diarrhea, Denies nausea and Denies vomiting Genitourinary: Genitourinary: Denies hematuria, Denies change in libido, Denies nocturia, Denies genital lesions, Denies flank pain and Denies urinary urgency Musculoskeletal: Musculoskeletal: Denies abnormal gait, Denies back pain, Denies myalgias, Denies arthralgias, Denies joint swelling, Denies muscle weakness and Denies neck pain Integumentary/Breasts: Skin/Breast: Denies swelling, Denies breast pain, Denies breast mass, Denies dry skin, Denies nipple discharge, Denies unusual bruising and Denies jaundice Neurologic: Denies Neuro-related abnormal movements, Denies Abnormal speech present, Denies abnormal gait, Denies behavioral changes, Denies confusion, Denies vertigo, Denies dizziness, Denies syncope, Denies loss of vision, Denies memory loss, Denies convulsions and Denies weakness Psychiatric: Psychiatric: Denies abnormal sleep pattern, Denies behavioral changes, Denies change in libido, Denies confusion, Denies depression, Denies anhedonia and Denies memory loss Endocrine: Endocrine: Reports no additional endocrine complaints, Denies velasquez ge in libido and Denies fatigue Hematologic/Lymphatic: Hematologic/Lymphatic: Reports no additional hematologic/lymphatic complaints Allergic/Immunologic: Allergic/Immunologic: Reports no additional allergic/immunologic complaints and Denies wheezing PMFSH Past Medical History Medical History (Updated 03/18/25 @ 06:38 by Barry Jimenez MD) Overweight Foot drop Family History Family History Father Diabetes mellitus Mother Hypertension Social History Social History Smoking status: Never smoker Alcohol intake: never Substance use: never Lack of Transportation: No Lack of Food: Never True Current Housing: I Have Housing Concerned About Future Housing: No Difficulty Paying Gas/Electric Bills: No Difficulty Paying for Meds: No Currently Unemployed: No Education: Don't Know Difficulty w/ Childcare or Family Care: No Living arrangements: with family Gender identity (if verbalized by the patient): Female Spiritual care concerns: No Meds Home Medications and Allergies Home Medications Medication Instructions Recorded Confirmed Type No Home Medications 03/11/25 03/11/25 History Allergies Allergy/AdvReac Type Severity Reaction Status Date / Time diphenhydramine (From Allergy Hives Verified 03/18/25 06:03 Benadryl) Vital Signs Vital Signs - 24 hr 03/18/25 06:03 Temperature 97.7 F Pulse Rate 71 Respiratory Rate 20 Blood Pressure 125/69 Pulse Oximetry 99 Oxygen Delivery Room Air Exam Const: General: cooperative, healthy appearing, comfortable and no acute distress Orientation/consciousness: oriented to person, oriented to place and oriented to time HENMT: Head: normal to inspection Ears: external ears normal Face/Nose/Sinus: Normal external nose present and normal facial exam Face and sinus: normal facial exam Eyes: General: appearance normal, both eyes and all related structures Neck: Neck: normal visual inspection, trachea midline and supple Resp: Auscultation: clear to auscultation bilaterally, no crackles, no rales, no rhonchi and no wheezes Cardio: Rate: regular rate Rhythm: regular rhythm Heart sounds: no click, no murmurs and no rubs GI: GI Palp: No abdominal tenderness, No Soft to palpation, No Tenderness to palpation present (GI) and No Palpable mass present Auscultation: normal bowel sounds Skin: General skin exam: normal color and no rashes or lesions noted Neuro: General: oriented to person, oriented to place and oriented to time Extrem: General: normal to inspection, no joint enlargement, no clubbing, cyanosis or edema, no pedal edema and no calf tenderness Psych: Appearance: grossly normal Mental Status: mental status grossly normal Speech and movement: Normal speech and movement present Assessment and Plan Assessment and plan (1) Keloid of skin: Code(s): L91.0 - Hypertrophic scar Status: Acute (2) Post-operative pain: Code(s): G89.18 - Other acute postprocedural pain Status: Acute Plan This patient is a 24-year-old female with a painful keloid scar at her low- transverse incision site on her abdomen. Her we have agreed to revise the scar. She understands the risks, benefits, and alternatives. She has completed informed consent process is ready to proceed.
[2025-03-18] MEDS: ACETAMINOPHEN 500 MG TABLET 1000 MG PO (07:25)
[2025-03-18] MEDS: KETOROLAC 15 MG/ML VIAL (*BKC) IV PUSH (07:25)
[2025-03-18] MEDS: ceFAZolin 2 GM/D5W 50 ML 2 GM/50 ML BAG IVPB (07:30)
[2025-03-18] MEDS: fentaNYL CITRATE INJ (*CRX) 100 MCG/2 ML VIAL 25 MCG IV PUSH ×8 (08:27→09:15)
--- NOTE | 2025-03-18 08:31 | W.PM.PROC2 ---
Procedure Note - Detailed Date of Procedure 03/18/25 Pre-op Diagnosis Incisional scar pain Post-op Diagnosis Same Procedure Performed Revision of low-transverse skin incision scar Surgeon Andrew Jones MD Anesthesia General Indications Pain Findings Raised, hypertrophic keloid of the low transverse skin incision. 10 x 1.5 cm Description of Procedure The patient was taken the operating room. She was prepped and draped in the dorsal supine position after induction of general anesthesia the low-transverse skin incision keloid was excised with a scalpel. It was done in elliptical fashion. The skin was then reapproximated with 4-0 Monocryl in a running fashion. The skin was covered with glue. The subcutaneous fat required significant cautery. Estimated Blood Loss 10 Pathology None sent Complications No immediate complications Condition Stable Disposition Same day
[2025-03-18] MEDS: oxyCODONE HCL (*CRX) 5 MG TAB IR PO (09:43)
== END 2025-03-18 10:50 | disposition home or self-care (01) ==
PROVIDERS: Anesthesiology; PCP Physician Assistant; Visit Provider Obstetrics & Gynecology
PROC: (CPT 11406; principal; 2025-03-18 07:30)
DX: L91.0 Hypertrophic scar (principal)
CPT/HCPCS: 11406; A9270; J0690; J1100; J1885; J2003; J2250; J2405; J2704; J3010; J7120